=== PATIENT | female | born 1995 | race Caucasian/White ===

== ENCOUNTER 2016-08-06 05:08 | Emergency (ER) | payer OTHER ==
[2016-08-06 05:58] LABS: HEMOGLOBIN 13.3 gm/dl (12.3-15.3); RED BLOOD COUNT 4.43 M/UL (4.00-5.10); WHITE BLOOD COUNT 6.5 K/UL (4.5-11.0)
[2016-08-06 06:06] LABS: BUN/CREATININE RATIO 11 (0-10)
== END 2016-08-06 10:00 | disposition home or self-care (01) ==
LOC: ER1 05:08
PROVIDERS: Family Medicine
DX: J20.9 Acute bronchitis, unspecified (principal); F17.200 Nicotine dependence, unspecified, uncomplicated; Z88.0 Allergy status to penicillin
CPT/HCPCS: 36415; 71010; 80053; 85025; 87081; 87880; 94664; 96360; 96361; 99283